=== PATIENT | female | born 1985 | race Caucasian/White ===

== ENCOUNTER 2018-11-25 23:42 | Emergency (ER) | payer OTHER ==
[~2018-11-25] VITALS: Ht 152.4 cm; Wt 65.8 kg
[~2018-11-25 23:42] MED LIST: AUGMENTIN 875875 MG PO; IBUPROFEN 600600 M1 PO; MOBIC15 MG PO; NOHOMEMEDICATIONS; NORCO 5-325 TA1 EACH PO; PENICILLIN V P500 MG PO; TRAMADOL 50 MG50 MG PO
[2018-11-25 23:49] VITALS: BP 158/109
== END 2018-11-26 00:30 | disposition home or self-care (01) ==
LOC: ER 23:42
DX: S40.861A Insect bite (nonvenomous) of right upper arm, initial encounter (principal); F17.210 Nicotine dependence, cigarettes, uncomplicated; W57.XXXA Bitten or stung by nonvenomous insect and other nonvenomous arthropods, initial encounter; Y93.01 Activity, walking, marching and hiking; Y92.89 Other specified places as the place of occurrence of the external cause; Y99.8 Other external cause status

== ENCOUNTER 2019-08-10 14:23 | Inpatient (IN) | payer OTHER ==
[~2019-08-10] VITALS: Ht 152.4 cm; Wt 71.3 kg
[2019-08-10 14:30] VITALS: BP 124/84
[2019-08-10] MEDS ORDERED: TYLENOL325 MG PO (14:34)
[2019-08-10] MEDS ORDERED: CLEOCIN HCL150 MG PO (14:35)
[2019-08-10 15:26] LABS: ABSOLUTE NEUTROPHILS 2.7 thou/uL (1.4-8.2); BASOPHILS 0.9 % (0.0-2.0); EOSINOPHILS 2.3 % (0.0-3.0); LYMPHOCYTES 45.4 % (24.0-44.0); MCHC 34.1 g/dL (28.0-37.0); MCV 93.9 fL (80.0-100.0); MONOCYTES 11.3 % (1.0-8.0); PLATELET COUNT 224 thou/uL (150-400); POLYS 40.1 % (36.0-66.0); RBC 4.36 mil/uL (4.20-5.00); RDW 13.5 % (10.5-14.5); WBC 6.8 thou/uL (4.0-11.0)
[2019-08-10 15:41] LABS: CALCIUM 9.2 mg/dL (8.5-10.1); CREATININE 0.6 mg/dL (0.6-1.0); POTASSIUM 3.9 mmol/L (3.5-5.1)
[2019-08-10 15:47] LABS: ALBUMIN 3.6 g/dL (3.4-5.0); TOTAL BILIRUBIN 0.1 mg/dL (<0.1-1.0); TOTAL PROTEIN 7.8 g/dL (6.4-8.2)
[2019-08-10 17:00] VITALS: BP 108/82
--- NOTE | 2019-08-10 17:18 | NUR ---
ATTEMPTED TO CALL REPORT TO 4W X 2 WITH NO ANSWER
[2019-08-10 17:47] VITALS: BP 106/75
[2019-08-10 18:12] VITALS: BP 141/67
[2019-08-10 19:35] VITALS: BP 108/72
--- NOTE | 2019-08-10 20:15 | NUR ---
Admitted from ER due to dog bite at 1814, transferred to room safely. A+Ox4. On regular diet- tolerated well, no nausea, no vomiting and no adbominal pain noted. Admission education done, forms signed. NS at 75cc/hr started on R FA. infusing well. Up ad ramsey, independent with ADLs. On room air. Vital signs upon admission taken and recorded- WNL. Continent of B/B. Consults for the following physicians called thru answering service: Dr Souza- called back and said to put pt on NPO post midnight, will do surgery tomorrow AM- material handler 1st shift informed, orders place; no order for OR procedure and consent; Dr Kong- Dr Daniel leblanc informed, still a/w call back; Dr Jones- answering service informed, a/w call back. mine shifter nurse informed re: admission orders done and what needs to be continued, admission checklist updated. Wound photo to be taken as well. Pt informed re: NPO post midnight. To continue monitoring patient.
[2019-08-11 04:05] VITALS: BP 111/60
[2019-08-11 07:49] VITALS: BP 124/82
--- NOTE | 2019-08-11 07:50 | NUR ---
RECIEVED CARE OF THIS PATIENT AT 1900. PATIENT ALERT AND ORIENTED X4. UP IN ROOM. C/O PAIN MED GIVEN WITH GOOD RELIEF. HAS THREE WOUNDS ON INN L THIGH THAT HAS REDNESS AROUND THEM. IV PATENT IN RFA WITH FLUIDS INFUSING. SLEPT VERY LITTLE THIS SHIFT.
[2019-08-11 08:08] LABS: HEMATOCRIT 39.7 % (37.0-47.0); HEMOGLOBIN 13.3 gm/dL (12.0-15.0); MCH 31.9 pg (26.0-34.0); MCHC 33.5 g/dL (28.0-37.0); MCV 95.1 fL (80.0-100.0); RBC 4.17 mil/uL (4.20-5.00); RDW 13.6 % (10.5-14.5); WBC 6.4 thou/uL (4.0-11.0)
[2019-08-11 08:18] LABS: CALCIUM 8.5 mg/dL (8.5-10.1); CREATININE 0.8 mg/dL (0.6-1.0); POTASSIUM 4.4 mmol/L (3.5-5.1)
--- NOTE | 2019-08-11 09:44 | HC ---
[facility] [place] [address] CONSULTATION Name: MICHELLE ESCOBAR AUGUST Room #: 445-P ADM IN M.R.#: [id number] Admission: 08/10/19 Attend Phys: Yifan Jauregui MD Discharge: Date of : 89 Report #: [id number] THIS REPORT FOR: cc: MUSHTAQ - No family physician/PCP MUSHTAQ - No family physician/PCP Jesse Sanchez MD ~ CC: [facility] physician/PCP Yifan Jauregui DATE OF SERVICE: 08/11/2019 ATTENDING PHYSICIAN: Dr. Jauregui. REASON FOR EVALUATION: Dog bite injury complicated by infection with abscess, left medial thigh. HISTORY OF PRESENT ILLNESS: Chart reviewed, patient examined. This is a 34-year-old woman without significant medical history who has sustained injury as a result of a dog bite on July 22. She noted it bled quite profusely. She was evaluated. It was cleaned, it was sutured up. She was given some Augmentin as prophylactic therapy. She returned a week later, was felt to have a worsening situation. Sutures were removed. She was placed on clindamycin. She took it for the last several days. It continued to get worse. She has intermittent episodes of pain, does not have significant systemic illness in terms of fevers or chills. Appetite has generally been okay. No pulmonary or gastrointestinal related complaints. Due to lack of her improvement and perhaps worsening, she was evaluated in the Emergency Room including an ultrasound, which showed soft tissue inflammation wide area deep within that edema fluid collection suggestive of an abscess. Due to concerns about likely need for surgical intervention, she was admitted. She was initiated on therapy with Unasyn. ALLERGIES: None known. CURRENT MEDICINES: Include enoxaparin, hydrocodone. PAST MEDICAL HISTORY: Otherwise, unremarkable. SOCIAL HISTORY: She does smoke cigarettes. She does use marijuana. Occasional ethanol. FAMILY HISTORY: Noncontributory. REVIEW OF SYSTEMS: Otherwise, unremarkable. PHYSICAL EXAMINATION: [facility] [address] [place] [address] CONSULTATION Name: MICHELLE ESCOBAR AUGUST Room #: 445-P [facility] IN [facility]#: [id number] Admission: 08/10/19 Attend Phys: Yifan Jauregui MD Discharge: Date of : 89 Report #: [id number] GENERAL: She is alert, cooperative, appropriate, appears well nourished. VITAL SIGNS: Temperature 97.8, pulse 69, respirations 18, blood pressure 124/82. SKIN: Warm, dry. No rashes. HEENT: Normocephalic. Extraocular muscles intact. NECK: Supple. LUNGS: Somewhat slightly diminished, otherwise clear. HEART: Regular. I do not appreciate a murmur. ABDOMEN: Soft, nontender, nondistended. EXTREMITIES: No cyanosis. GENITOURINARY: Deferred. RECTAL: Deferred. MUSCULOSKELETAL: Left thigh has a necrotic area. There are 3 separate ulcerations with blackened eschar. It is moderately inflamed at this point. It is tender medially. There is likely a bit of fluctuance. LABORATORY DATA: test was negative. CBC: White count 6.8, H and H 14.0 and 41.0, platelets of 224. Electrolytes: Sodium 135, potassium 3.9, chloride 100, bicarb is 24, anion gap of 11, BUN and creatinine 14 and 0.6. LFTs unremarkable. Albumin of 3.6, total protein of 7.8, estimated GFR 116. Lactic acid 2.1, repeat was 1.3. ASSESSMENT AND PLAN: Dog bite injury, likely complicated by skin and soft tissue infection with abscess. We will continue ampicillin/sulbactam pending surgery evaluation. I would imagine she would need some sort of intervention at this point to remove the devitalized tissue, may be a candidate for a wound VAC as well. At this point, she is not overtly toxic. We will monitor expectantly. Add incentive spirometry. <ELECTRONICALLY SIGNED> By: Jesse Sanchez MD 08/11/19 0944 [id number] [id number] Jesse Sanchez MD /nt
--- NOTE | 2019-08-11 16:07 | NUR ---
PT A&OX4, VSS, PAIN IN LEFT THIGH. PATIENT COMPLETED I&D TODAY. DRESSING C/D/I. IV PATENT AND FLUIDS RUNNING. NO SIGNS OF DISTRESS. WILL CONTINUE TO MONITOR.
[2019-08-11 16:17] VITALS: BP 125/85
--- NOTE | 2019-08-15 08:16 | O ---
[facility] [place] [address] [place] [address] OPERATIVE REPORT Name: MICHELLE ESCOBAR Room #: 445-P [facility] IN M.R.#: [id number] Admission: 08/10/19 Attend Phys: Yifan Jauregui MD Discharge: 08/11/19 Date of : 89 Report #: [id number] THIS REPORT FOR: cc: MUSHTAQ - No family physician/PCP MUSHTAQ - No family physician/PCP Sami Souza MD ~ CC: [facility] physician/PCP Yifan Jauregui DATE OF SERVICE: 08/11/2019 PREOPERATIVE DIAGNOSIS: Left leg abscess and wound from dog bite. POSTOPERATIVE DIAGNOSIS: Left leg abscess and wound from dog bite. OPERATION: Excisional debridement of left leg, down through muscle, 8 x 8 cm. SURGEON: Sami Souza MD ANESTHESIA: General. ESTIMATED BLOOD LOSS: 10 mL. SPECIMEN: Fluid for culture and sensitivity. DESCRIPTION OF PROCEDURE: After informed consent was obtained, the patient was brought to the operating room and placed supine. SCDs were placed and working, preoperative antibiotics were administered, general anesthesia was induced. The left leg and thigh were prepped and draped in the usual sterile fashion. This was an excisional debridement. Depth was down through the muscle. 100% of the wound was debrided. Post-debridement wound area was approximately 8 x 8 cm. The cautery was used to dissect away necrotic tissue down through the muscle. Cultures were taken. The area was then copiously irrigated with normal saline. It was packed with sterile gauze and sterile dressing. COMPLICATIONS: None. DISPOSITION: The patient was taken to recovery in satisfactory condition. <ELECTRONICALLY SIGNED> By: Sami Souza MD 08/15/19 0816 [id number] Sami Souza MD /nt
--- NOTE | 2019-08-17 11:31 | HC ---
[facility] [place] [address] [place] [address] CONSULTATION Name: MICHELLE ESCOBAR Room #: 445-P [facility] IN M.R.#: [id number] Admission: 08/10/19 Attend Phys: Yifan Jauregui MD Discharge: 08/11/19 Date of : 89 Report #: [id number] THIS REPORT FOR: cc: MUSHTAQ - No family physician/PCP MUSHTAQ - No family physician/PCP Sreekanth Dia MD ~ CC: [facility] physician/PCP Yifan Jauregui DATE OF SERVICE: 08/11/2019 WOUND CARE CONSULTATION NOTE REASON FOR CONSULTATION: Dog bite of left thigh with secondary wound infection. HISTORY OF PRESENT ILLNESS: The patient is a 34-year-old woman without medical comorbidities or diabetes, who was treated at [facility] for a dog bite of the left anterior thigh. She was bitten by a dog when her dog was in a fight on 07/23/2019. She had sutures placed, apparently, at [facility] and was given oral antibiotics. She was told to come back in 10 days for suture removal. When she came back for suture removal, she was told the wound was infected, was admitted for IV antibiotics and discharged with oral clindamycin. After discharge, the patient noted increased pain and drainage from the wound. She had been told in the hospital, possibly she would need surgery for debridement. Due to increasing pain, redness, swelling and drainage with some fever, she presented herself to the [facility] Emergency Room for a "second opinion." She was admitted to the hospital and placed on IV antibiotics. General Surgery, Dr. Souza, was consulted. Dr. Souza did take the patient to the operating room today, 08/11/2019, before I saw the patient and performed incision, drainage and debridement. Wound is dressed now, so I did not open it. Dr. Souza did note, on his examination yesterday, that the left leg wound 8 x 5 cm had a black eschar with redness and required debridement, which was done in the operating room today. The patient is now in postoperative status. MEDICATIONS: Currently intravenous Zosyn. At home, had been taking clindamycin. ALLERGIES: None. REVIEW OF SYSTEMS: Recent leg pain and redness. PHYSICAL EXAMINATION: GENERAL: Shows mildly obese young woman, alert, pleasant, conversant. HEENT: Mucous membranes are moist. NECK: Supple. [facility] [address] [place] [address] CONSULTATION Name: MICHELLE ESCOBAR RUSHFORD Room #: 445-P [facility] IN M.R.#: [id number] Admission: 08/10/19 Attend Phys: Yifan Jauregui MD Discharge: 08/11/19 Date of : 89 Report #: [id number] LUNGS: Respirations unlabored. ABDOMEN: Mildly obese. EXTREMITIES: Shows Feliz wrap on her left thigh. Proximal and distal to the Feliz dressing, no erythema is noted. Dressing is clean and dry. IMPRESSION: Dog bite of left anterior thigh that is treated with IV antibiotics and status post incision and drainage and debridement by Dr. Souza. Wound care team will follow and inspect the wound tomorrow with the dressings removed. <ELECTRONICALLY SIGNED> By: Sreekanth Dia MD 08/17/19 1131 1338 30 Sreekanth Dia MD /nt
== END 2019-08-11 18:54 | disposition left against medical advice (07) | DRG 854 ==
LOC: ER 14:23 → EROBS 16:34 → 4S 17:53
PROVIDERS: Physician Assistant; ADMIT Hospitalist; ATTEND Hospitalist
PROC: 0KBR0ZZ Excision of Left Upper Leg Muscle, Open Approach (ICD-10-PCS; principal; 2019-08-11)
DX: A41.9 Sepsis, unspecified organism (principal); L02.416 Cutaneous abscess of left lower limb; L03.116 Cellulitis of left lower limb; S71.152A Open bite, left thigh, initial encounter; F17.210 Nicotine dependence, cigarettes, uncomplicated; E11.9 Type 2 diabetes mellitus without complications; Z53.29 Procedure and treatment not carried out because of patient's decision for other reasons; Z79.899 Other long term (current) drug therapy; W54.0XXA Bitten by dog, initial encounter; Y93.89 Activity, other specified; Y92.89 Other specified places as the place of occurrence of the external cause; Y99.8 Other external cause status
CPT/HCPCS: 10195; 50101; 50386; 57091; 70005

== ENCOUNTER 2019-08-14 12:11 | Inpatient (IN) | payer OTHER ==
[~2019-08-14] VITALS: Ht 165.1 cm; Wt 71.2 kg
[~2019-08-14 12:11] MED LIST changes: +CLEOCIN HCL150 MG PO; +TYLENOL325 MG PO
[2019-08-14 12:14] VITALS: BP 144/87
[2019-08-14 12:46] LABS: ABSOLUTE NEUTROPHILS 5.9 thou/uL (1.4-8.2); BASOPHILS 0.6 % (0.0-2.0); EOSINOPHILS 0.9 % (0.0-3.0); HEMOGLOBIN 13.7 gm/dL (12.0-15.0); LYMPHOCYTES 17.5 % (24.0-44.0); MCH 31.7 pg (26.0-34.0); MCHC 33.3 g/dL (28.0-37.0); MCV 95.2 fL (80.0-100.0); MONOCYTES 7.4 % (1.0-8.0); PLATELET COUNT 225 thou/uL (150-400); POLYS 73.6 % (36.0-66.0); RDW 13.3 % (10.5-14.5)
[2019-08-14 12:54] LABS: CALCIUM 8.5 mg/dL (8.5-10.1); CREATININE 0.6 mg/dL (0.6-1.0); POTASSIUM 3.6 mmol/L (3.5-5.1)
[2019-08-14 13:00] LABS: ALBUMIN 3.5 g/dL (3.4-5.0); TOTAL BILIRUBIN 0.7 mg/dL (<0.1-1.0); TOTAL PROTEIN 7.5 g/dL (6.4-8.2)
[2019-08-14 13:30] VITALS: BP 116/74
[2019-08-14 13:34] VITALS: BP 129/46
[2019-08-14 14:39] VITALS: BP 103/51
[2019-08-14 19:52] VITALS: BP 116/71
[2019-08-15 07:23] VITALS: BP 107/70
[2019-08-15 16:00] VITALS: BP 120/68
[2019-08-15 18:58] VITALS: BP 102/59
[2019-08-16 04:04] VITALS: BP 96/61
[2019-08-16 07:55] VITALS: BP 97/50
--- NOTE | 2019-08-16 08:15 | HC ---
[facility] [place] [address] [place] [address] CONSULTATION Name: MICHELLE ESCOBAR Room #: 433-I ADM IN M.R.#: [id number] Admission: 08/14/19 Attend Phys: Alirio Levy MD Discharge: Date of : 89 Report #: [id number] THIS REPORT FOR: cc: MUSHTAQ - No family physician/PCP MUSHTAQ - No family physician/PCP Jeyson Jones MD ~ CC: Alirio LANDIN physician/PCP DATE OF SERVICE: 08/14/2019 CHIEF COMPLAINT: Infected dog bite to the left thigh. HISTORY OF PRESENT ILLNESS: This is a 34-year-old female patient who presented to the Emergency Department after a dog bite approximately 10 days ago. She was admitted to the hospital here, underwent surgical debridement, and then signed out against advice. She had initially been evaluated at [facility] and came here after developing a wound infection. She noted increasing pain, swelling, drainage and difficulty walking and has presented here again for further evaluation and treatment. The patient's recent cultures demonstrate MRSA, Pseudomonas, and Klebsiella, none of which are sensitive to the clindamycin. PAST MEDICAL HISTORY: Unremarkable for significant previous illness or injury. SOCIAL HISTORY: The patient drinks alcohol approximately a fifth of vodka per week, admits to smoking cigarettes 1 pack per day, smokes marijuana on a regular basis as well. FAMILY HISTORY: Noncontributory. MEDICATIONS: Acetaminophen and clindamycin. ALLERGIES: No known drug allergies. REVIEW OF SYSTEMS: CONSTITUTIONAL: The patient denies fever, chills or weight loss. NEUROLOGICAL: The patient denies focal weakness, numbness or tingling. EYES: The patient denies visual changes, redness, or drainage. ENT: The patient denies earache, nasal drainage, sore throat. CARDIOVASCULAR: The patient denies chest pain, palpitations or diaphoresis. PULMONARY: The patient denies cough or shortness of breath. GASTROINTESTINAL: The patient denies nausea, vomiting or abdominal pain. ORTHOPEDIC: The patient complains of pain, swelling, redness, drainage from her left thigh. Other systems in a 14-point review of systems are negative. [facility] [address] [place] [address] CONSULTATION Name: MICHELLE ESCOBAR TR[place] Room #: 433-I [facility] IN [facility].#: [id number] Admission: 08/14/19 Attend Phys: Alirio Levy MD Discharge: Date of : 89 Report #: [id number] PHYSICAL EXAMINATION: VITAL SIGNS: At this time include temperature 98.4, pulse 104, respiratory rate of 17, blood pressure 116/71. GENERAL: This is a well-developed, well-nourished female patient who appears to be in minimal distress. HEENT: Head normocephalic. Nose and throat clear. NECK: Supple. LUNGS: Clear. HEART: Regular rate and rhythm. ABDOMEN: Soft. bowel sounds present. EXTREMITIES: Examination of lower extremities demonstrates a large defect in the left anterior thigh from dog bite and subsequent surgical debridement. There is a mix of granulation, a little bit of fibrin, some fibrinous material and some yellow-green drainage present, surrounding erythema and tenderness is noted as well. NEUROLOGIC: The patient is alert and oriented and appropriate. LABORATORY DATA: Include white blood cell count 8000 with a hemoglobin of 13.6. Sodium 137, potassium 3.6, chloride 103, CO2 of 22, BUN 13, creatinine 0.6, glucose 162. Albumin 3.5. CLINICAL IMPRESSION: 1. Traumatic wound to the left anterior thigh due to a dog bite, status post surgical debridement. 2. Wound infection with pseudomonas, Klebsiella, methicillin-resistant staphylococcus aureus. 3. History of alcohol use/dependency. 4. History of tobacco and marijuana use. RECOMMENDATIONS: At this point in time, we will recommend a quarter strength Dakin's moist gauze dressing to be packed twice per day. She will be on intravenous antibiotic therapy initially directed by Dr. Angelo. She will need ongoing nutritional support to maximize wound healing. All questions have been answered. I appreciate being asked to see her in consultation. <ELECTRONICALLY SIGNED> By: Jeyson Jones MD 08/16/19 0815 1549 1647 Jeyson Jones MD /nt
[2019-08-16] MEDS ORDERED: CIPROFLOXACIN250 M2 PO (10:44)
[2019-08-16] MEDS ORDERED: HYDROCODON-ACE1 EAC7 PO (10:44)
[2019-08-16] MEDS ORDERED: LINEZOLID600 MG PO (10:44)
== END 2019-08-16 16:04 | disposition home or self-care (01) | DRG 872 ==
LOC: ER 12:11 → 4S 13:26 → EROBS 13:26 → 4S 13:40
PROVIDERS: Physician Assistant; ADMIT Hospitalist
DX: A41.9 Sepsis, unspecified organism (principal); L03.116 Cellulitis of left lower limb; I10 Essential (primary) hypertension; S71.152A Open bite, left thigh, initial encounter; F10.20 Alcohol dependence, uncomplicated; W54.0XXA Bitten by dog, initial encounter; Y93.9 Activity, unspecified; Y92.89 Other specified places as the place of occurrence of the external cause; Y99.8 Other external cause status
CPT/HCPCS: 10102

== ENCOUNTER 2019-08-25 02:58 | Emergency (ER) | payer OTHER ==
[~2019-08-25] VITALS: Ht 152.4 cm; Wt 66.7 kg
[~2019-08-25 02:58] MED LIST changes: +CIPROFLOXACIN250 M2 PO; +HYDROCODON-ACE1 EAC7 PO; +LINEZOLID600 MG PO
[2019-08-25 03:00] VITALS: BP 124/83
== END 2019-08-25 03:36 | disposition home or self-care (01) ==
LOC: ER 02:58
DX: S71.102D Unspecified open wound, left thigh, subsequent encounter (principal); F17.210 Nicotine dependence, cigarettes, uncomplicated; Z79.2 Long term (current) use of antibiotics; Z79.899 Other long term (current) drug therapy; W54.0XXD Bitten by dog, subsequent encounter

== ENCOUNTER → 2019-09-06 | Emergency (ER) | payer OTHER ==
[~2019-09-06] VITALS: Ht 152.4 cm; Wt 68.0 kg
[2019-09-06 22:19] VITALS: BP 136/98
== END ==
LOC: ER 22:18
DX: Z76.0 Encounter for issue of repeat prescription (principal); Z53.21 Procedure and treatment not carried out due to patient leaving prior to being seen by health care provider

== ENCOUNTER 2019-09-18 17:20 | Emergency (ER) | payer OTHER ==
[~2019-09-18] VITALS: Ht 152.4 cm; Wt 65.8 kg
[2019-09-18 17:47] LABS: URINE BILIRUBIN NEGATIVE (Negative); URINE BLOOD 2+ (Negative); URINE CLARITY CLEAR; URINE COLOR YELLOW; URINE GLUCOSE-RANDOM* NEGATIVE (Negative); URINE KETONES NEGATIVE (Negative); URINE LEUKOCYTES-REFLEX NEGATIVE (Negative); URINE NITRITE-REFLEX NEGATIVE (Negative); URINE PROTEIN (DIPSTICK) NEGATIVE (Negative); URINE SPECIFIC GRAVITY 1.025 (1.005-1.035); URINE UROBILINOGEN 0.2 E.U./dl (0.2-1.0)
[2019-09-18 17:57] LABS: BACTERIA-REFLEX 1-9 Few /HPF (None Seen); CASTS None Seen /LPF (None Seen); CRYSTALS None Seen /LPF (None Seen); SQUAMOUS 4-10 Moderate /LPF (0-3); URINE RBC 3-10 Few /HPF (0-2); URINE WBC-REFLEX 0-5 Rare /HPF (0-5)
[2019-09-18 18:00] LABS: ABSOLUTE NEUTROPHILS 1.6 thou/uL (1.4-8.2); EOSINOPHILS 1.6 % (0.0-3.0); HEMATOCRIT 39.3 % (37.0-47.0); HEMOGLOBIN 13.4 gm/dL (12.0-15.0); LYMPHOCYTES 46.6 % (24.0-44.0); MCH 32.2 pg (26.0-34.0); MCHC 34.2 g/dL (28.0-37.0); MCV 94.3 fL (80.0-100.0); MONOCYTES 11.8 % (1.0-8.0); PLATELET COUNT 187 thou/uL (150-400); RBC 4.17 mil/uL (4.20-5.00); RDW 14.3 % (10.5-14.5); WBC 4.2 thou/uL (4.0-11.0)
[2019-09-18 18:04] LABS: CALCIUM 7.7 mg/dL (8.5-10.1); CREATININE 0.7 mg/dL (0.6-1.0); POTASSIUM 3.6 mmol/L (3.5-5.1)
[2019-09-18 18:07] LABS: AMP/METHAMP Negative (Negative); BARBITURATES Negative (Negative); BENZODIAZEPINES Negative (Negative); COCAINE Negative (Negative); METHADONE Negative (Negative); OPIATES Negative (Negative); PCP Negative (Negative)
[2019-09-18 18:10] LABS: ALBUMIN 3.7 g/dL (3.4-5.0); TOTAL BILIRUBIN 0.3 mg/dL (<0.1-1.0); TOTAL PROTEIN 7.4 g/dL (6.4-8.2)
[2019-09-18] MEDS ORDERED: ONDANSETRON HCL4 M2 PO (19:34)
[2019-09-18] MEDS ORDERED: BUTALB-APAP-CA1 EACH PO (19:34)
[2019-09-18 20:02] VITALS: BP 123/79
== END 2019-09-18 20:05 | disposition home or self-care (01) ==
LOC: ER 17:20
PROVIDERS: Physician Assistant
DX: R11.2 Nausea with vomiting, unspecified (principal); R51 Headache; N93.9 Abnormal uterine and vaginal bleeding, unspecified; F17.210 Nicotine dependence, cigarettes, uncomplicated

== ENCOUNTER 2019-09-20 01:17 | Emergency (ER) | payer OTHER ==
[~2019-09-20] VITALS: Ht 152.4 cm; Wt 63.5 kg
[~2019-09-20 01:17] MED LIST changes: +BUTALB-APAP-CA1 EACH PO; +ONDANSETRON HCL4 M2 PO
[2019-09-20 02:54] VITALS: BP 107/60
== END 2019-09-20 03:06 | disposition home or self-care (01) ==
LOC: ER 01:17
DX: S20.219A Contusion of unspecified front wall of thorax, initial encounter (principal); S80.211A Abrasion, right knee, initial encounter; R51 Headache; F17.210 Nicotine dependence, cigarettes, uncomplicated; W18.39XA Other fall on same level, initial encounter; Y93.89 Activity, other specified; Y92.89 Other specified places as the place of occurrence of the external cause; Y99.8 Other external cause status

== ENCOUNTER → 2020-11-30 | Emergency (ER) | payer OTHER ==
[~2020-11-30] VITALS: Ht 157.5 cm; Wt 58.1 kg
--- NOTE | ~2020-11-30 | EMS ---
[facility] [address] [place] [address] EMS Patient Care Report Name: MICHELLE ESCOBAR Room #: REG Radha#: [id number] Admission: 11/30/20 Attend Phys: Discharge: Date of : 89 Report #: [id number] THIS REPORT FOR: //name// Report Transmitted: 12/01/2020 15:10 EMS Care Summary [place], [place]/[employer] Incident [id number] @ 11/30/2020 03:05 Incident Location [facility] [address] [address] Patient MICHELLE ESCOBAR Female, 35 Years 1985 Patient Address [address] [place] [address] Chief Complaint Unconscious Disposition Transported No Lights/[place] Dispatch Reason Unconscious/Fainting Transported To [facility] Narrative Arrived on scene with P42 to find our patient sleeping in next to a sidewalk outside of a bar. Patient had a half empty bottle of vodka laying next to her on the ground and smelled heavily of alcohol. Patient was pain responsive and would state her name when asked, but patient refused to asked any other questions and would pull her head into her shirt to go back to sleep. Patient's vital signs and glucose obtained. Patient transported and transferred to receiving facility without change in patient condition. Initial Vitals @03:13P: 86,BP: 128/84,CO: 1, @03:13P: 83,R: 16,BP: 126/83,GCS: 12,Glucose: 112,SpO2: 100,Revised Trauma: 11, [facility] [address] [place] [address] EMS Patient Care Report Name: MICHELLE ESCOBAR Room #: REG BillKatey#: [id number] Admission: 11/30/20 Attend Phys: Discharge: Date of : [birth year] Report #: [id number] @03:14P: 83,R: 14,BP: 118/86,GCS: 12,SpO2: 99,Revised Trauma: 11, Assessments @03:08MENTAL:Confused,Person Oriented,SKIN:HEENT:Head/Face: No Abnormalities,Eyes: No Abnormalities,Neck/Airway: No Abnormalities,LUNG SOUNDS:General: No Abnormalities,Left Upper: No Abnormalities,Right Upper: No Abnormalities,Left Lower: No Abnormalities,Right Lower: No Abnormalities,ABDOMEN:General: No Abnormalities,Left Upper: No Abnormalities,Right Upper: No Abnormalities,Left Lower: No Abnormalities,Right Lower: No Abnormalities,PELVIS//GI:No Abnormalities,EXTREMITIES:Left Arm: No Abnormalities,Right Arm: No Abnormalities,Left Leg: No Abnormalities,Right Leg: No Abnormalities,PULSE:NEURO:No Abnormalities, Impression Alcohol use Procedures @03:08ALS AssessmentResponse: UnchangedSucceeded Timeline 02:54,Call Received 02:54,Dispatch Notified 03:05,Dispatched 03:05,En Route 03:08,On Scene 03:08,At Patient 03:08,ALS Assessment,Response: UnchangedSucceeded, 03:13,BP: 126/83 M,PULSE: 83,RR: 16 R,SPO2: 100 Ox,ETCO2: ,B,PAIN: ,GCS: 12, 03:13,BP: 128/84 M,PULSE: 86,RR: R,SPO2: Ox,ETCO2: ,BG: ,PAIN: ,GCS: , 03:14,BP: 118/86 M,PULSE: 83,RR: 14 R,SPO2: 99 Ox,ETCO2: ,BG: ,PAIN: ,GCS: 12, 03:14,Depart Scene 03:36,At Destination 03:40,Call Closed Disclaimer v1.1 Copyright 2020 [employer] This EMS Care Summary contains data elements from the applicable legal record (which may be displayed differently). It is designed to provide pertinent information for the following purposes: continuity of care, clinical quality, and state data reporting. The complete legal record is available to ED staff and administrators of the receiving hospital in [employer]'s Patient Tracker. All data is provided "as is."
[2020-11-30 07:34] VITALS: BP 108/79
== END ==
LOC: ER 03:31
DX: F10.129 Alcohol abuse with intoxication, unspecified (principal); Z79.899 Other long term (current) drug therapy; Z79.891 Long term (current) use of opiate analgesic; F17.210 Nicotine dependence, cigarettes, uncomplicated

== ENCOUNTER 2020-12-03 23:52 | Emergency (ER) | payer OTHER ==
[~2020-12-03] VITALS: Ht 157.5 cm; Wt 47.6 kg
--- NOTE | ~2020-12-03 | EMS ---
[facility] [address] [place] [address] EMS Patient Care Report Name: MICHELLE ESCOBAR Room #: DEP LANETTE Garcia#: [id number] Admission: 12/03/20 Attend Phys: Discharge: 12/04/20 Date of : 89 Report #: [id number] THIS REPORT FOR: //name// Report Transmitted: 12/04/2020 08:40 EMS Care Summary [place], [place]/[facility] Incident [id number] @ 12/03/2020 23:32 Incident Location [facility] [place] [address] Patient MICHELLE ESCOBAR Female, 35 Years 1985 Patient Address [address] [place] [address] Chief Complaint Meth use Disposition Transported No Lights/Largo Dispatch Reason Sick Person Transported To [facility] Narrative M42 arrived on scene to find the patient sitting upright on the ground. Patient was having very erratic behavior and was having a talking time talking to us. [employer] said the patient said she was chasing someone into this restaurant. The bouncer had stopped the patient and called [employer]. The patient wouldn't tell the officers anything but that her feet were burning. Inside of the ambulance patient said she had recently used meth but was not sure if it was a few days or hours ago. Patient was very paranoid someone was after her. En route to the hospital no changes in the patient condition occurred. M42 arrived on scene of the hospital and patient care was transferred to the RN. Initial Vitals [facility] [address] [place] [address] EMS Patient Care Report Name: MICHELLE ESCOBAR [facility] [id number] Admission: 12/03/20 Attend Phys: Discharge: 12/04/20 Date of : 89 Report #: [id number] @23:44P: 97,R: 16,BP: 112/68,Pain: 0/10,GCS: 15,CO: 2,SpO2: 96,Revised Trauma: 12, @23:39P: 104,R: 16,BP: 115/53,Pain: 0/10,GCS: 15,Glucose: 127,SpO2: 98,Revised Trauma: 12, Assessments @23:35MENTAL:Event Oriented,Person Oriented,Confused,SKIN:No Abnormalities,HEENT:Head/Face: No Abnormalities,Eyes: No Abnormalities,Neck/Airway: No Abnormalities,LUNG SOUNDS:General: No Abnormalities,Left Upper: No Abnormalities,Right Upper: No Abnormalities,Left Lower: No Abnormalities,Right Lower: No Abnormalities,ABDOMEN:General: No Abnormalities,Left Upper: No Abnormalities,Right Upper: No Abnormalities,Left Lower: No Abnormalities,Right Lower: No Abnormalities,PELVIS//GI:No Abnormalities,EXTREMITIES:Left Arm: No Abnormalities,Right Arm: No Abnormalities,Left Leg: No Abnormalities,Right Leg: No Abnormalities,PULSE:NEURO:No Abnormalities,@23:47MENTAL:Confused,Event Oriented,Person Oriented,SKIN:No Abnormalities,HEENT:Head/Face: No Abnormalities,Eyes: No Abnormalities,Neck/Airway: No Abnormalities,LUNG SOUNDS:General: No Abnormalities,Left Upper: No Abnormalities,Right Upper: No Abnormalities,Left Lower: No Abnormalities,Right Lower: No Abnormalities,ABDOMEN:General: No Abnormalities,Left Upper: No Abnormalities,Right Upper: No Abnormalities,Left Lower: No Abnormalities,Right Lower: No Abnormalities,PELVIS//GI:No Abnormalities,EXTREMITIES:Left Arm: No Abnormalities,Right Arm: No Abnormalities,Left Leg: No Abnormalities,Right Leg: No Abnormalities,PULSE:NEURO:No Abnormalities, Impression Overdose - Methadone Procedures @23:35ALS AssessmentResponse: UnchangedSucceeded Timeline 23:19,Call Received 23:19,Dispatch Notified 23:32,Dispatched 23:32,En Route 23:34,On Scene 23:35,At Patient 23:35,ALS Assessment,Response: UnchangedSucceeded, 23:39,BP: 115/53 M,PULSE: 104,RR: 16 R,SPO2: 98 Ox,ETCO2: ,B,PAIN: 0,GCS: 15, 23:39,Depart Scene 23:44,BP: 112/68 M,PULSE: 97,RR: 16 R,SPO2: 96 Ox,ETCO2: ,BG: ,PAIN: 0,GCS: 15, 23:50,At Destination 00:09,Call Closed [facility] [address] [place] [address] EMS Patient Care Report Name: GALILEA ESCOBARJAMIA BOLAND Room #: DEP LANETTE Garcia#: [id number] Admission: 12/03/20 Attend Phys: Discharge: 12/04/20 Date of : 89 Report #: [id number] Disclaimer v1.1 Copyright 2020 [employer] This EMS Care Summary contains data elements from the applicable legal record (which may be displayed differently). It is designed to provide pertinent information for the following purposes: continuity of care, clinical quality, and state data reporting. The complete legal record is available to ED staff and administrators of the receiving hospital in [employer] Patient Tracker. All data is provided "as is."
[2020-12-04 01:10] VITALS: BP 126/84
== END 2020-12-04 01:13 | disposition home or self-care (01) ==
LOC: ER 23:52
DX: F10.129 Alcohol abuse with intoxication, unspecified (principal); F17.210 Nicotine dependence, cigarettes, uncomplicated